=== PATIENT | female | born 2000 | race Hispanic/Latino ===

== ENCOUNTER 2022-09-10 19:12 | Emergency (ER) | payer MEDICAID, OTHER ==
[~2022-09-10] VITALS: Ht 162.6 cm; Wt 61.2 kg
[2022-09-10 19:52] VITALS: BP 127/84
[2022-09-10] MEDS ORDERED: IBUPROFEN 600 MG TABLET PO ONE (20:30)
[2022-09-10] MEDS ORDERED: IBUP-2070 PO (22:12)
== END 2022-09-10 22:34 | disposition home or self-care (01) ==
LOC: EDH 19:12
DX: S93.601A Unspecified sprain of right foot, initial encounter (principal); S93.401A Sprain of unspecified ligament of right ankle, initial encounter; S70.11XA Contusion of right thigh, initial encounter; Z90.89 Acquired absence of other organs; W17.89XA Other fall from one level to another, initial encounter; Y93.89 Activity, other specified; Y92.89 Other specified places as the place of occurrence of the external cause; Y99.8 Other external cause status
CPT/HCPCS: 29515; 73552; 73610; 73660

== ENCOUNTER 2023-02-22 19:31 | Emergency (ER) | payer MEDICAID ==
[~2023-02-22] VITALS: Ht 160 cm; Wt 67.1 kg
[~2023-02-22 19:31] MED LIST: IBUP-2070 PO
[2023-02-22 21:27] VITALS: BP 125/84
[2023-02-22] MEDS ORDERED: AMOX875T2 PO (22:45)
== END 2023-02-22 23:02 | disposition home or self-care (01) ==
LOC: EDH 19:31
DX: S71.151A Open bite, right thigh, initial encounter (principal); W54.0XXA Bitten by dog, initial encounter; Y93.89 Activity, other specified; Y92.89 Other specified places as the place of occurrence of the external cause; Y99.8 Other external cause status
CPT/HCPCS: 73552

== ENCOUNTER 2024-09-19 15:37 | Emergency (ER) | payer SELFPAY ==
[~2024-09-19] VITALS: Ht 162.6 cm; Wt 74.8 kg
[~2024-09-19 15:37] MED LIST changes: +AMOX875T2 PO
[2024-09-19 17:16] LABS: RAPID GROUP A STREP negative (NEGATIVE)
[2024-09-19 17:19] LABS: SARS-CoV-2, RNA, NAAT NEGATIVE SARS CoV-2 (NEGATIVE)
[2024-09-19 17:23] LABS: INFLUENZA TYPE A Negative For Type A (NEGATIVE); INFLUENZA TYPE B Negative For Type B (NEGATIVE)
--- NOTE | 2024-09-19 17:52 | HMCIMG ---
CHEST 1VW REASON: sob COMPARISON: 08/16/2004 FINDINGS: Single view of the chest was obtained. Lungs are clear. Heart size is normal. There is no pulmonary vascular congestion. Mediastinum and bony thorax appear unremarkable. IMPRESSION: 1. Normal single view chest x-ray.
[2024-09-19] MEDS ORDERED: CETI5TAB12 PO (18:00)
--- NOTE | 2024-09-19 18:01 | ERN ---
General Chief Complaint: Flu Symptoms Stated Complaint: COUGH, OB 7 WEEKS Time Seen by MD: 15:43 Time Seen by Midlevel: 15:43 Source: patient History of Present Illness Initial Comments Patient is a 23-year-old female was currently eight weeks presenting to the emergency department with a cough that has been ongoing for one week. Denies any fever, chills, or any other symptoms at this time. She specifically denies any vaginal bleeding. She was not seen an OBGYN but has a referral already scheduled. Patient is a A0. Denies being on any medications Allergies: Coded Allergies: No Known Allergies (Unverified Allergy, Unknown, 09/10/22) Home Meds Active Scripts Cetirizine HCl (Cetirizine HCl) 5 Mg Tablet, 1 TAB PO DAILY for allergy symptoms for 30 Days, #30 TAB 0 Refills Prov:HAZEL MARINELLI PA 09/19/24 Amoxicillin (Amoxicillin) 875 Mg Tablet, 875 MG PO BID for 10 Days, #20 TAB Prov:ROCK SWANSON TOW [employer] 02/22/23 Ibuprofen (Ibuprofen) 600 Mg Tablet, 600 MG PO Q6H PRN for PAIN for 5 Days, #20 TAB Prov:JESSICA ORTIZ V [employer]OW [employer]IVER 09/10/22 Past Medical History Past Medical History: No Pertinent History Past Surgical History: Tonsillectomy Family History Family History: Negative Social History Social History: Negative, Lives with family Female( History) LMP: Jul 29, 2025 : 1 Para: 0 ROS Dictation CONSTITUTIONAL: Negative except for HPI HEAD/FACE: Negative except for HPI EENT: Negative except for HPI RESPIRATORY: Negative except for HPI GASTROINTESTINAL/ABDOMINAL: Negative except for HPI GENITOURINARY: Negative except for HPI MUSCULOSKELETAL: Negative except for HPI INTEGUMENTARY: Negative except for HPI NEUROLOGICAL/PSYCH: Negative except for HPI HEMATOLOGIC/LYMPHATIC: Negative except for HPI All Systems Negative, Except as noted above. 13 point review of systems assessed and all negative except for above. Physical Exam Physical Exam Dictation Vital Signs reviewed General Appearance: Alert, oriented x 3, no acute distress, well developed, nourished. Head and Face: non-traumatic. Eyes: PERRL, pink conjunctivas, eyelid no trauma, anterior chamber with arcus senilis. Ears: Pinnas intact and no signs of trauma or erythema ear canals clear and no discharge TM no erythema Nose: No discharge, no bleeding. Oropharynx: Mouth normal, tongue pink, pharynx clear,no erythema, tonsils no exudates, no abscesses noted, mucous membrane moist Neck: Supple, non-tender, no thyromegaly, no masses, no JVD, no bruits Breast:Deferred Chest:No tenderness, no crepitus, no paradoxical movement, no retractions Lungs:Clear, well-ventilated, symmetric, no rales, no wheezing, no rhonchi, no stridor, good breath sounds bilaterally Heart: Regular rate, regular rhythm, no murmur, no gallops Vascular: no peripheral edema, Abdomen: Soft, positive bowel sounds, nondistended, no guarding, nontender, no rebound, no masses no hepatomegaly, no splenomegaly, no Jaimes's sign, no hernias. Rectal: Deferred Genital: Deferred Neurological: Normal speech, motor function intact, sensory function intact Musculoskeletal: Neck nontender, full range of motion, back nontender, full range of motion, Extremities: nontender, full range of motion Skin: Color pink, dry, no turgor, no rash, no lacerations, no abrasions, no contusions. Lymphatic: Deferred Results Laboratory and Microbiology Lab and Micro Result Laboratory Tests Test 09/19/24 16:40 Influenza Type A Antigen Negative For Type A Influenza Type B Antigen Negative For Type B SARS-CoV-2, RNA, NAAT NEGATIVE SARS CoV-2 Group A Streptococcus Rapid negative (NEGATIVE) Labs Reviewed?: Yes MDM MDM: Differential diagnosis: Allergic rhinitis, viral illness, upper respiratory infection, pneumonia There are no social concerns with this patient. Prescription drug management Prescriptions will include: Cetirizine Medical management and examination interpretation discussions were had by me with other qualified healthcare professionals as indicated for the patient's care. ED Course Orders Procedure Category Date Status Time Covid Rna Naat LAB 09/19/24 Complete 16:40 Influenza Type A & B, LAB 09/19/24 Complete Rapid 16:40 Rapid (Group A Strep) LAB 09/19/24 Complete 16:40 Chest 1vw RAD 09/19/24 Resulted 16:40 Vital Signs Date Time Temp Pulse Resp B/P (MAP) Pulse Ox O2 Delivery O2 Flow Rate FiO2 09/19/24 18:34 99.0 107 17 142/80 98 Room Air* 0 21 09/19/24 16:38 97.9 102 20 135/98 98 Room Air 0 [facility] [address] [place] [address] IMAGING REPORT Signed PATIENT: SHINE CLARK MR#: [id number] : 2000 SEX: F AGE: 23 LOCATION: [facility] ORDER 1641 STATUS: REG ER REPORT#: [id number] SERVICE 1640 REASON: sob ORDERING PHYSICIAN: HAZEL MARINELLI PROCEDURE: CXR1VW - CHEST 1VW CHEST 1VW REASON: sob COMPARISON: 08/16/2004 FINDINGS: Single view of the chest was obtained. Lungs are clear. Heart size is normal. There is no pulmonary vascular congestion. Mediastinum and bony thorax appear unremarkable. IMPRESSION: 1. Normal single view chest x-ray. DICTATED BY: OLI VELEZ MD DATE: 09/19/241749 ELECTRONICALLY SIGNED BY: OLI VELEZ MD DATE: 09/19/241751 DX & DISP Disposition: Discharge Departure Impression: Primary Impression: Cough Additional Impression: Allergies Condition: Stable Scripts Cetirizine HCl (Cetirizine HCl) 5 Mg Tablet 1 TAB PO DAILY for allergy symptoms for 30 Days, #30 TAB 0 Refills Prov: HAZEL MARINELLI 09/19/24 Additional Instructions: You have tested negative for influenza a, influenza B, and strep pharyngitis. Your chest x-ray does not show any evidence of pneumonia. Your symptoms may be related to allergies. I have given you a prescription for cetirizine which is safe during . Please follow up with your primary care doctor and OBGYN for outpatient evaluation. Referrals: SELF,REFERRAL (PCP) Time of Disposition: 17:59 I have reviewed the case, and I agree with, Diagnosis and Plan I performed the substantive portion of the visit. I have reviewed and personally made and approve the management plan that is documented in the note by myself or the SALTY. I acknowledge for responsibility for the patient's management plan. HAZEL MARINELLI Sep 19, 2024 18:01
[2024-09-19 18:34] VITALS: BP 142/80; PULSE 107; RESP 17; TEMP 99; O2SAT 98
== END 2024-09-19 18:45 | disposition home or self-care (01) ==
LOC: EDH 15:37
DX: O26.891 Other specified pregnancy related conditions, first trimester (principal); T78.40XA Allergy, unspecified, initial encounter; R50.9 Fever, unspecified; Z20.822 Contact with and (suspected) exposure to COVID-19; Z3A.01 Less than 8 weeks gestation of pregnancy; Z90.89 Acquired absence of other organs; X58.XXXA Exposure to other specified factors, initial encounter
CPT/HCPCS: 71045; 87635; 87804; 87880; 99284